=== PATIENT | female | born 1965 | race Caucasian/White ===

== ENCOUNTER 2021-12-02 13:11 | Outpatient (CLI) | payer OTHER, SELFPAY ==
--- NOTE | 2021-12-02 13:29 | USCV_ITS ---
Chica Hyde Age: 56 Gender: F : 1965 Exam Date: 12/02/2021 14:42 Ordering Phys: Simran Mcmahan MD Technologist: ELIJAH Exam Location: [facility] – [place] Indication: Pulmonary Embolism associated with covid 19 BP: 129 / 80 HR: 68 Rhythm: Sinus Technical Quality: Adequate MEASUREMENTS (Male / Female) Normal Values 2D ECHO LV Diastolic Diameter PLAX 3.3 cm 4.2 - 5.9 / 3.9 - 5.3 cm LV Systolic Diameter PLAX 2.1 cm IVS Diastolic Thickness 1.1 cm 0.6 - 1.0 / 0.6 - 0.9 cm IVS Systolic Thickness 1.1 cm LVPW Diastolic Thickness 1.1 cm 0.6 - 1.0 / 0.6 - 0.9 cm LVPW Systolic Thickness 1.4 cm RV Chamber Size 2.3 cm LVOT Diameter 2.0 cm LV Ejection Fraction 2D Teich 67.8 % LV Ejection Fraction MOD 2C 64.8 % LV Ejection Fraction 2C AL 65.8 % LA Diameter 3.4 cm LA Width 3.5 cm LA Height 4.5 cm RA Width 2.5 cm RA Height 3.8 cm Aorta at Sinotubular Diameter 2.5 cm IVC Diameter 1.5 cm M-MODE Aortic Annulus Diameter 2.6 cm LA Ao Ratio MM 1.4 MV E Point Septal Separation 0.4 cm DOPPLER AV Peak Velocity 115.0 cm/s LVOT Peak Velocity 113.0 cm/s AV Area Cont Eq vti 3.0 cm squared AV Area Cont Eq pk 3.0 cm squared MV Area PHT 3.7 cm squared Mitral E to A Ratio 0.9 MV E' Velocity 44.0 cm/s Mitral E to MV E' Ratio 7.0 Mitral E to LV E' Lateral Ratio 7.0 Mitral E to LV E' Septal Ratio 6.9 TR Peak Velocity 230.7 cm/s TR Peak Gradient 21.3 mmHg TV Peak E Velocity 52.0 cm/s Right Atrial Pressure 3.0 mmHg Pulmonary Artery Systolic Pressu 24.3 mmHg PV Peak Velocity 104.0 cm/s RV Acceleration Time 0.2 s RV Ejection Time 0.3 s RV AcT/ET 0.5 FINDINGS Left Ventricle Normal left ventricular size and systolic function, EF 65 %. No regional wall motion abnormalities. Right Ventricle Possibly of normal size and ejection fraction. Right Atrium Possibly of normal size Left Atrium Possibly of normal size Mitral Valve Thickened mitral valve. Aortic Valve Thickened aortic valve. Tricuspid Valve Trace tricuspid valve regurgitation. Pulmonic Valve Pulmonic valve not well visualized. Pericardium No pericardial effusion. Aorta Normal aortic annulus size. IVC Normal IVC dimension CONCLUSIONS Normal left ventricular size and systolic function, EF 65 %. No regional wall motion abnormalities. Thickened aortic and mitral valves. Trace tricuspid valve regurgitation. Estimated pulmonary artery peak systolic pressure 24 mmHg There is no pericardial effusion. Technically difficult study because of the poor ultrasonic window. Dr Jocelyne Aquino MD FACC (Electronically Signed) Final Date: 02 Dec 2021 19:55 S
--- NOTE | 2021-12-02 14:28 | PFTS_ITS ---
Date of Study:12/02/21 Date of Dictation: 12/05/2021 MECHANICS: Postbronchodilator forced vital capacity (FVC) is normal. Postbronchodilator forced expiratory volume in one second (FEV1) is normal. FEV1/FVC is normal There is no significant response to bronchodilators. FLOW VOLUME LOOP: Flattening of expiratory limb during prebronchodilator maneuver however it appears to improve during postbronchodilator maneuver but with cough artifact it is difficult to say whether it is abnormal. LUNG VOLUMES: Total lung capacity (TLC) is normal. Residual volume (RV) is normal. DIFFUSING CAPACITY FOR CARBON MONOXIDE: Normal INTERPRETATION: The PFTs are normal. There is no significant response to bronchodilators however at mid airflow levels there is response to bronchodilators. On flow volume loops flattening of expiratory limb during prebronchodilator maneuver however it appears to improve during postbronchodilator maneuver but with cough artifact it is difficult to say whether it is abnormal. Clinical correlation recommended. MTDD
== END 2021-12-02 13:12 | disposition home or self-care (01) ==
LOC: RAD 13:16
PROVIDERS: Visit Provider Internal Medicine Critical Care Medicine
DX: J44.9 Chronic obstructive pulmonary disease, unspecified (principal)
CPT/HCPCS: 93306; 94060; 94726; 94729